=== PATIENT | male | born 1980 | race Caucasian/White ===

== ENCOUNTER 2017-08-14 23:02 | Emergency (ER) | payer MEDICAID ==
[~2017-08-14] VITALS: Ht 165.1 cm; Wt 88.9 kg
[2017-08-14 23:06] VITALS: BP 151/80
--- NOTE | 2017-08-14 23:12 | NUR ---
TO APOLINAR, A/W TEVIN PORTER ERMD NOTED, FOR XRAY KNEE
--- NOTE | 2017-08-15 00:44 | NUR ---
TO ER BED 4
--- NOTE | 2017-08-15 00:45 | NUR ---
37Y M BIB FAMILY C/O L KNEE PAIN SINCE 08/01/17. PT STATES HE WAS WALKING AND HIS LEFT FOOT FELL INTO A DIP. PT STATES PAIN IS CONSTANT, RADIATING TO THE LEFT UPPER AND LOWER LEG. PT STATES PAIN IS 8/10. PT DENIES ANY MEDICAL HX/ NKA. PT AAOX4.
[2017-08-15] MEDS ORDERED: KETOROLAC 60 MG/2 ML VIAL IM ONE (01:45)
[2017-08-15 02:11] VITALS: BP 145/71
--- NOTE | 2017-08-15 02:12 | NUR ---
Patient discharged with v/s stable. Written and verbal after care instructions given and explained. Patient alert, oriented and verbalized understanding of instructions. Ambulatory with steady gait. All questions addressed prior to discharge. ID band removed. Patient advised to follow up with PMD. Rx of NORCO, MOTRIN given. Patient educated on indication of medication including possible reaction and side effects. Opportunity to ask questions provided and answered.
== END 2017-08-15 02:11 | disposition home or self-care (01) ==
LOC: MED 23:02
DX: M25.562 Pain in left knee (principal)
CPT/HCPCS: 73562; 96372; 99284; J1885